=== PATIENT | male | born 1950 | race Caucasian/White ===

== ENCOUNTER → 2021-03-01 | Day surgery (SDC) | payer MEDICARE, OTHER ==
[~2021-03-01] MED LIST: COSOPT OPTH SOL10 ML EYEBOTH; ELIQUIS5 MG PO; GABAPENTIN400 MG PO; HYDROXYZINE HCL25 MG PO; LATANOPROST2.5 ML EYEBOTH; LEVOTHYROXINE50 MCG PO; LOSARTAN POTAS100 MG PO; REQUIP0.25 MG PO; TRAZODONE HCL50 MG PO; ULTRAM50 MG PO
== END | disposition home or self-care (01) ==
LOC: OR 11:00
PROVIDERS: Podiatrist Foot & Ankle Surgery
PROC: 0SGQ04Z Fusion of Left Toe Phalangeal Joint with Internal Fixation Device, Open Approach (ICD-10-PCS; principal; 2021-03-01 13:00)
DX: M20.42 Other hammer toe(s) (acquired), left foot (principal); L08.89 Other specified local infections of the skin and subcutaneous tissue; G57.62 Lesion of plantar nerve, left lower limb; L60.0 Ingrowing nail; I73.89 Other specified peripheral vascular diseases; L85.3 Xerosis cutis; B35.1 Tinea unguium; L60.3 Nail dystrophy; G60.8 Other hereditary and idiopathic neuropathies; M76.72 Peroneal tendinitis, left leg; R26.0 Ataxic gait; M25.372 Other instability, left ankle; L97.522 Non-pressure chronic ulcer of other part of left foot with fat layer exposed; I10 Essential (primary) hypertension; E03.9 Hypothyroidism, unspecified; I25.10 Atherosclerotic heart disease of native coronary artery without angina pectoris; I48.91 Unspecified atrial fibrillation; G89.29 Other chronic pain; M19.90 Unspecified osteoarthritis, unspecified site; Z20.822 Contact with and (suspected) exposure to COVID-19; Z88.0 Allergy status to penicillin; Z91.030 Bee allergy status; Z79.01 Long term (current) use of anticoagulants; Z79.899 Other long term (current) drug therapy; Z95.5 Presence of coronary angioplasty implant and graft; Z91.013 Allergy to seafood
CPT/HCPCS: 73630; C1776; J0690; J2001; J2704; J2795; J3010; J7030; J7120

== ENCOUNTER → 2021-07-17 | Outpatient (CLI) | payer MEDICARE, OTHER | LOC: HEART 5 06-03 13:30 | DX: I87.2 Venous insufficiency (chronic) (peripheral) (principal); R60.0 Localized edema | CPT/HCPCS: 93970 ==